=== PATIENT | male | born 1945 | race African-American/Black ===

== ENCOUNTER 2018-08-16 05:04 | Day surgery (SDC) | payer BC ==
[2018-08-15 14:28] VITALS: BMI 31.8
[2018-08-16 09:32] VITALS: TEMP 97.5
[2018-08-16 10:33] VITALS: BP 120/74; PULSE 80
--- NOTE | 2018-08-18 18:42 | PATH ---
Surgical Pathology Report Patient Name: ALEJANDRO NGUYEN [facility]. Rec. #: [id number] /Age/Gender: 1945 (Age: 73) / M Account: [id number] Location: U-ENDOSCOPY Taken: 08/16/2018 Received: 08/17/2018 Reported: 08/18/2018 Physicians: Cong Tierney M.D. Specimen(s) Received A: DUODENAL BULB B: ANTRUM C: STOMACH POLYP D: GASTRIC BODY POLYP GE JUNCTION E: POLYP SIGMOID POLYP F: POLYP SIGMOID G: RECTAL POLYP H: DESCENDING COLON POLYP I: TRANSVERSE COLON POLYP J: RIGHT COLON POLYP Clinical History Screening Postoperative diagnosis: Hiatal hernia, gastric body polyp, colon polyps, diverticulosis Final Diagnosis A. SECOND PORTION DUODENUM AND BULB, BIOPSY: DUODENUM MUCOSA WITH FOCAL MILD NONSPECIFIC CHRONIC DUODENITIS. NO HISTOLOGIC EVIDENCE OF CELIAC DISEASE. B. ANTRUM, BIOPSY: GASTRIC MUCOSA WITH CHRONIC GASTRITIS. IMMUNOSTAIN FOR H. PYLORI IS NEGATIVE. NEGATIVE FOR INTESTINAL METAPLASIA. C. BODY OF STOMACH, POLYP, BIOPSY: FUNDIC GLAND POLYP. IMMUNOSTAIN FOR H. PYLORI IS NEGATIVE. NEGATIVE INTESTINAL METAPLASIA. D. GE JUNCTION, BIOPSY: GASTROESOPHAGEAL JUNCTIONAL MUCOSA WITH REFLUX ESOPHAGITIS. NEGATIVE FOR INTESTINAL METAPLASIA. E. SIGMOID POLYP, POLYPECTOMY: TUBULOVILLOUS ADENOMA, MULTIPLE FRAGMENTS. F. SIGMOID POLYP STALK, EXCISION: BENIGN COLONIC MUCOSA. NO ADENOMATOUS CHANGE IDENTIFIED. G. RECTAL POLYP, POLYPECTOMY: TUBULAR ADENOMA. H. DESCENDING COLON POLYP, POLYPECTOMY: TUBULAR ADENOMA. I. TRANSVERSE COLON POLYP, POLYPECTOMY: TUBULAR ADENOMA, MULTIPLE FRAGMENTS. J. RIGHT COLON POLYP, POLYPECTOMY: TUBULAR ADENOMA. Electronically Signed Jet Rogers M.D. Gross Description A. Received in formalin, labeled "biopsy second portion of duodenum and bulb" are 3 xiao, irregular portions of soft tissue ranging from 0.4-0.5 cm. in greatest dimension. The specimens are submitted in toto in one cassette. B. Received in formalin, labeled "biopsy antrum" are 2 xiao, irregular portions of soft tissue measuring 0.2 and 0.6 cm. in greatest dimension. The specimens are submitted in toto in one cassette. C. Received in formalin, labeled "biopsy polyp body of stomach" is a xiao, irregular portion of soft tissue measuring 0.5 cm. in greatest dimension. The specimen is submitted in toto in one cassette. D. Received in formalin, labeled "biopsy GE junction" are 4 xiao, irregular portions of soft tissue ranging from 0.3-0.4 cm. in greatest dimension. The specimens are submitted in toto in one cassette. E. Received in formalin labeled "polyp sigmoid colon," are 6 xiao, polypoid portions of soft tissue ranging from 0.5 x 0.3 x 0.2 cm to 2.4 x 1.7 x 1.7 cm. The specimen is entirely submitted in 7 cassettes as follows: 1-three smaller polyps; 2-one bisected polyp; 3-one trisected polyp; 4-7-largest serially sectioned polyp. F. Received in formalin labeled "biopsy sigmoid polyp stalk," is a 1.0 x 0.8 x 0.3 cm xiao portion of soft tissue. The specimen is submitted in toto in one cassette. G. Received in formalin, labeled "rectal polyp" is a xiao, irregular portion of soft tissue measuring 0.6 cm. in greatest dimension. The specimen is submitted in toto in one cassette. H. Received in formalin, labeled "polyp descending colon" are 3 xiao, irregular portions of soft tissue ranging from 0.2-0.6 cm. in greatest dimension. The specimens are submitted in toto in one cassette. I. Received in formalin, labeled "polyp transverse colon" are 7 xiao, irregular portions of soft tissue ranging from 0.3-0.8 cm. in greatest dimension. The specimens are submitted in toto in one cassette. J. Received in formalin, labeled "right colon polyp" is a xiao, irregular portion of soft tissue measuring 0.4 cm. in greatest dimension. The specimen is submitted in toto in one cassette. 08/17/2018 [facility]/17/2018
== END 2018-08-16 10:30 | disposition home or self-care (01) ==
LOC: JASU-ENDO 05:04
PROVIDERS: ATTEND Internal Medicine Gastroenterology
PROC: 0DBL8ZX Excision of Transverse Colon, Via Natural or Artificial Opening Endoscopic, Diagnostic (ICD-10-PCS; 2018-08-16)
PROC: 0DBN8ZX Excision of Sigmoid Colon, Via Natural or Artificial Opening Endoscopic, Diagnostic (ICD-10-PCS; 2018-08-16)
PROC: 0DBK8ZX Excision of Ascending Colon, Via Natural or Artificial Opening Endoscopic, Diagnostic (ICD-10-PCS; 2018-08-16)
PROC: 0DB38ZX Excision of Lower Esophagus, Via Natural or Artificial Opening Endoscopic, Diagnostic (ICD-10-PCS; 2018-08-16)
PROC: 0DB68ZX Excision of Stomach, Via Natural or Artificial Opening Endoscopic, Diagnostic (ICD-10-PCS; 2018-08-16)
PROC: 0DBP8ZX Excision of Rectum, Via Natural or Artificial Opening Endoscopic, Diagnostic (ICD-10-PCS; principal; 2018-08-16 08:00)
DX: K92.1 Melena (principal); K62.1 Rectal polyp; D12.4 Benign neoplasm of descending colon; D12.5 Benign neoplasm of sigmoid colon; K64.8 Other hemorrhoids; K57.30 Diverticulosis of large intestine without perforation or abscess without bleeding; K21.0 Gastro-esophageal reflux disease with esophagitis; K44.9 Diaphragmatic hernia without obstruction or gangrene; K31.7 Polyp of stomach and duodenum
CPT/HCPCS: 88305-TC; 88342-TC

== ENCOUNTER 2018-11-23 10:19 | Emergency (ER) | payer OTHER, BC ==
[2018-11-23 10:26] VITALS: BP 146/84; PULSE 80; TEMP 98.2; BMI 64.5
--- NOTE | 2018-11-23 10:40 | PDOC ---
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 Patient has no open wound to skin. 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 Patient denies any other symptoms Timing: just prior to arrival Severity: moderate Exposed Location: Left: Forearm(s) Assessing Significant Risk PEP: Yes Blood Past History - Travel Traveled outside of the country in the last 30 days: No Close contact w/someone who was outside of country & ill: No - Past Medical History Allergies/Adverse Reactions: Allergies Allergy/AdvReac Type Severity Reaction Status Date / Time No Known Allergies Allergy Verified 12/07/11 01:14 Home Medications: Ambulatory Orders Potassium Chloride [K-Dur -] 20 meq PO DAILY 12/07/11 Valsartan/Hydrochlorothiazide [Diovan Hct 160-12.5 mg Tablet -] 1 combo PO DAILY 12/07/11 Pantoprazole Sodium [Protonix -] 40 mg PO DAILY #30 tablet.ec 12/08/11 Mag Carb/Aluminum Hydrox/Algin [Gaviscon Liquid] 30 ml PO Q4H PRN 30 Days #355 oz 08/16/18 Rosuvastatin Calcium [Crestor] 5 mg PO DAILY 08/16/18 Tamsulosin HCl [Flomax] 0.4 mg PO DAILY 08/16/18 Cancer: Yes (Prostate -seed implant) COPD: No Diabetes: No GI Disorders: Yes (Hiatal Hernia, GERD) HTN: Yes Hypercholesterolemia: Yes - Immunization History Immunization Up to Date: No - Psycho Social/Smoking Cessation Hx Smoking Status: No Smoking History: Never smoked Have you smoked in the past 12 months: No Number of Cigarettes Smoked Daily: 0 Information on smoking cessation initiated: No Hx Alcohol Use: No Drug/Substance Use Hx: No Substance Use Type: None Hx Substance Use Treatment: No Review of Systems - Review of Systems Able to Perform ROS?: Yes Is the patient limited Faroese proficient: No Constitutional: No: Malaise, Weakness HEENTM: No: Symptoms Reported Respiratory: No: Symptoms reported Cardiac (ROS): No: Symptoms Reported ABD/GI: No: Symptoms Reported Musculoskeletal: No: Symptoms Reported Integumentary: Yes: Symptoms Reported, See HPI, Other (blood spill on left forearm) Neurological: No: Symptoms reported Hematologic/Lymphatic: No: Symptoms Reported All Other Systems: Reviewed and Negative *Physical Exam - Vital Signs Last Vital Signs Temp Pulse Resp BP Pulse Ox 98.2 F 80 16 146/84 99 11/23/18 10:24 11/23/18 10:24 11/23/18 10:24 11/23/18 10:24 11/23/18 10:24 - Physical Exam General Appearance: Yes: Nourished, Appropriately Dressed. No: Apparent Distress HEENT: positive: Normal ENT Inspection Neck: positive: Supple Respiratory/Chest: positive: Lungs Clear, Normal Breath Sounds. negative: Respiratory Distress, Accessory Muscle Use Cardiovascular: positive: Regular Rhythm, Regular Rate Musculoskeletal: positive: Normal Inspection Extremity: positive: Normal Inspection Integumentary: positive: Normal Color, Other (small amount of dried blood on left cuff of long sleeve short) Neurologic: positive: Fully Oriented, Normal Response Post Exposure - ED Protocol - Exposure Treatment Washing/Decontamination: Soap/Water Source Patient HIV Status:: HIV Positive Is PEP indicated?: No Prophylaxis for HIV discussed?: Yes Prophylaxis given?: No Prophylaxis refused?: Yes Drug(s) Information Sheets given:: Yes Baseline bloods drawn prophylaxis:(use *Exposure-Hosp Emp): Yes - Referrals Employee Referred to Employee Health:: Yes Medical Decision Making - Medical Decision Making 11/23/18 10:43 Patient with no significant past medical history who presents for 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 Patient has no open wound to skin. 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 Patient denies any other symptoms Postexposure labs ordered. Tetanus vaccine given. No indication for HIV prep given patient has no open wounds and wearing long sleeve shit which caught most of the blood splatter. Labs ordered. Will repeat postexposure lab in a month and treat based on follow -up lab results. Plan discussed with patient patient agrees with plan. Patient agrees with no need for HIV prep at this point. Discharge - Discharge Information Problems reviewed: Yes Clinical Impression/Diagnosis: Employee exposure to body fluids Condition: Stable Disposition: HOME - Admission No - Follow up/Referral Referrals: Speedy Guerrero MD [Primary Care Provider] - - Patient Discharge Instructions Patient Printed Discharge Instructions: How to Handle Body Fluid Exposure -- Non-Healthcare Worker (At Home, [facility] Additional Instructions: Follow-up back in 1 month and the employee's note for repeat postexposure lab. You will be treated based on repeat postexposure lab. He received tetanus vaccine today. - Post Discharge Activity Work/Back to School Note: Back to Work
[2018-11-23] MEDS ORDERED: TETANUS AND DIPHTHERIA TOXOID 0.5 ML DISP.SYRIN IM ONE (10:43)
[2018-11-23] MEDS ORDERED: DIPHTH,PERTUSS(ACELL),TET 0.5 ML DISP.SYRIN IM ONE (11:06)
[2018-11-23 11:30] LABS: BASO % 0.2 % (0-2.0); EOS % 2.5 % (0-4.5); HEMATOCRIT 43.8 % (35.4-49); LYMPH % 62.5 % (8-40); MCH 31.8 pg (25.7-33.7); MCHC 34.2 g/dl (32.0-35.9); MEAN CELL VOLUME 92.8 fl (80-96); MEAN PLT VOLUME 8.7 fl (7.5-11.1); MONO % 8.8 % (3.8-10.2); PLATELET COUNT 185 K/MM3 (134-434); RBC 4.72 M/mm3 (4.00-5.60); RDW 14.2 % (11.9-15.9); WHITE BLOOD COUNT 4.4 K/mm3 (4.0-10.0)
[2018-11-23 11:58] LABS: ALBUMIN 3.8 g/dl (3.4-5.0); BILIRUBIN,TOTAL 0.5 mg/dL (0.2-1); BLOOD UREA NITROGEN 17.3 mg/dL (7-18); CALCIUM 9.4 mg/dL (8.5-10.1); CREATININE 1.2 mg/dL (0.55-1.3); PHOSPHOROUS 2.8 mg/dL (2.5-4.9); TOT PROT 7.6 g/dl (6.4-8.2); URIC ACID 8.2 mg/dL (2.6-7.2)
[2018-11-23 12:57] LABS: ANISOCYTOSIS 0; MACROCYTOSIS 0; PLATELET ESTIMATE NORMAL
[2018-11-24 03:06] LABS: HEP B CORE AB, TOT Negative (Negative)
== END 2018-11-23 11:49 | disposition home or self-care (01) ==
LOC: JERFT 10:19
PROC: 3E0234Z Introduction of Serum, Toxoid and Vaccine into Muscle, Percutaneous Approach (ICD-10-PCS; principal; 2018-11-23)
DX: Z77.21 Contact with and (suspected) exposure to potentially hazardous body fluids (principal); Z85.46 Personal history of malignant neoplasm of prostate; I10 Essential (primary) hypertension; K44.9 Diaphragmatic hernia without obstruction or gangrene; E78.00 Pure hypercholesterolemia, unspecified; K21.9 Gastro-esophageal reflux disease without esophagitis; X58.XXXA Exposure to other specified factors, initial encounter; Y93.89 Activity, other specified; Y92.238 Other place in hospital as the place of occurrence of the external cause; Y99.0 Civilian activity done for income or pay
CPT/HCPCS: 36415; 80053; 82465; 82977; 83615; 84100; 84478; 84550; 85025; 86317; 86704; 86803; 87340; 87389; 99282-25

== ENCOUNTER 2021-11-22 21:14 | Emergency (ER) | payer BC ==
[2021-11-22 21:26] VITALS: RESP 16; TEMP 98; BMI 31.7
[2021-11-22] MEDS ORDERED: IBUPROFEN 600 MG TABLET (FP) PO ONE ×2 (21:40→21:58)
[2021-11-22] MEDS ORDERED: METHOCARBAMOL 500 MG TABLET PO ONE (21:41)
[2021-11-22] MEDS ORDERED: LIDOCAINE 5% TOPICAL PATCH TP ONE (21:41)
[2021-11-22] MEDS ORDERED: LIDOCAINE 5% TOPICAL PATCH ONE (21:58)
[2021-11-22] MEDS ORDERED: METHOCARBAMOL 500 MG TABLET ONE (21:58)
[2021-11-22] MEDS ORDERED: LIDOCAINE PATCH REMOVAL MC SCH (22:00)
[2021-11-22 23:08] LABS: INR 1.1 (0.83-1.09); PROTHROMBIN TIME (PATIENT) 12.7 SEC (9.7-13.0)
[2021-11-22 23:14] LABS: ALBUMIN 3.7 g/dl (3.4-5.0); BILIRUBIN,TOTAL 0.6 mg/dl (0.2-1); CALCIUM 9.3 mg/dl (8.5-10); CREATININE 1.1 mg/dl (0.55-1.3); TOT PROT 6.9 g/dl (6.4-8.2)
[2021-11-22 23:19] LABS: HEMATOCRIT 48.5 % (35.4-49); HEMOGLOBIN 16.4 G/dL (11.7-16.9); MCHC 33.9 g/dl (32.0-35.9); MEAN CELL VOLUME 94.5 fl (80-96); PLATELET COUNT 178.4 10^3/uL (134-434); RBC 5.13 10^6/uL (4.00-5.60); RDW 14.1 % (11.9-15.9); WHITE BLOOD COUNT 5.1 10^3/uL (4.0-10.8)
[2021-11-23 00:16] VITALS: BP 134/83; PULSE 64
== END 2021-11-23 00:16 | disposition home or self-care (01) ==
LOC: FER 21:14
DX: M19.011 Primary osteoarthritis, right shoulder (principal)
CPT/HCPCS: 36415; 73030-TC-RT-FY; 80053; 84484; 85025; 85379; 85610; 93005; 99285-25

== ENCOUNTER 2024-12-11 06:22 | Day surgery (SDC) | payer BC ==
[2024-12-11 10:37] VITALS: BMI 31.0
[2024-12-11 12:14] VITALS: TEMP 97.7
[2024-12-11 12:57] VITALS: RESP 18
[2024-12-11 13:00] VITALS: BP 118/62; PULSE 76
== END 2024-12-11 13:06 | disposition home or self-care (01) ==
LOC: JASU-ENDO 06:22
PROVIDERS: ATTEND Internal Medicine Gastroenterology
PROC: 0DBL8ZX Excision of Transverse Colon, Via Natural or Artificial Opening Endoscopic, Diagnostic (ICD-10-PCS; 2024-12-11)
PROC: 0DBP8ZX Excision of Rectum, Via Natural or Artificial Opening Endoscopic, Diagnostic (ICD-10-PCS; 2024-12-11)
PROC: 0DBM8ZX Excision of Descending Colon, Via Natural or Artificial Opening Endoscopic, Diagnostic (ICD-10-PCS; principal; 2024-12-11 11:00)
DX: Z12.11 Encounter for screening for malignant neoplasm of colon (principal); D12.4 Benign neoplasm of descending colon; D12.3 Benign neoplasm of transverse colon; D12.8 Benign neoplasm of rectum; D50.9 Iron deficiency anemia, unspecified; K64.8 Other hemorrhoids; K57.30 Diverticulosis of large intestine without perforation or abscess without bleeding; K29.50 Unspecified chronic gastritis without bleeding; K44.9 Diaphragmatic hernia without obstruction or gangrene; Z86.0101 Personal history of adenomatous and serrated colon polyps
CPT/HCPCS: 88305-TC; 88342-TC